=== PATIENT | female | born 1945 | race Caucasian/White ===

== ENCOUNTER 2017-06-03 18:58 | Observation (INO) | payer MEDICARE ==
[~2017-06-03] VITALS: Ht 157.5 cm; Wt 74.8 kg
--- NOTE | ~2017-06-03 | MR122 ---
[facility] A Service of [facility] RADIOLOGY TEXT RESULTS PATIENT: RAVINDER LLOYD LOCATION: [facility] 308- : 44 UNIT #: [id number] AGE: [address]: Rc Sands MD SEX: F ORDER DR: [id number] [facility] [address] [place], [place] [address] [id number] I MR#: [id number] Acc #: [id number] NAME: RAVINDER LLOYD : 1945 SEX: F STUDY DATE/TIME: 06/04/2017 14:38 UNIT: A U ROOM: [facility] STUDY DESCRIPTION: MR MRA Head Wo Contrast Attending Physician: Rc Sands M.D. Ordering Physician: Rc Sands M.D. Primary Care Physician: Eric Post Jr., M.D. MRI CENTER REPORT This report is preliminary unless electronic signature is present. EXAM MR angiogram of the head without contrast dated 06/04/2017. COMPARISON MRI brain and MRA neck dated 06/04/2017. HISTORY Nausea, vomiting, weakness and dizziness since 06/03/2017 a.m. Constant vertigo since 06/03/1970 from 03:00 a.m. FINDINGS Source and 3-D reconstruction MIP images of the [place] was obtained without contrast. Visualized bilateral intracranial internal carotid arteries, anterior cerebral arteries and middle cerebral arteries are within normal limits. Basilar artery and bilateral posterior cerebral arteries do not demonstrate any significant abnormality. There is decrease in caliber of the left vertebral artery slightly, as it extends towards the vertebrobasilar junction. The left PICA probably takes off from it as it extends intradurally itself. No obvious aneurysm or AVM. IMPRESSION 1. There is mild decrease in caliber of the V4 segment of the left vertebral artery as it extends intradurally towards the vertebrobasilar junction. It could be due to mild decrease in caliber after the takeoff of the left PICA. It has a smooth caliber. Atherosclerotic mild narrowing is next in the differential consideration. 2. No aneurysm or AVM. Dictated by... Swetha Snow M.D. THIS IS AN ELECTRONICALLY VERIFIED REPORT [facility] A Service of [facility] RADIOLOGY TEXT RESULTS PATIENT: RAVINDER LLOYD LOCATION: [facility] 308-01 : 44 UNIT #: [id number] AGE: [address]: Rc Sands MD SEX: F ORDER DR: Swetha Snow M.D. at 06/07/2017 1:14 PM CPR/gz TD: 06/05/2017 08:29 JOB #: [id number] MRI CENTER REPORT Page 1 of 1 COPY
--- NOTE | ~2017-06-03 | EKG ---
PATIENT: RAVINDER LLOYD UNIT #: [id number] Ventricular Rate: 51 BPM Atrial Rate: 51 BPM P-R Interval: 146 ms QRS Duration: 74 ms Q-T Interval: 464 ms QTC Calculation(Bezet): 427 ms P [place]: 88 degrees Calculated R [place]: 30 degrees Calculated T [place]: 75 degrees Diagnosis Line: Sinus bradycardia Diagnosis Line: Otherwise normal ECG Diagnosis Line: When compared with ECG of 03-JAN-2016 06:13, Diagnosis Line: No significant change was found Diagnosis Line: Confirmed by YENNY SANDERS MD ([id number]) on Diagnosis Line: 06/03/2017 11:18:25 PM INTERPRETING MD: TOMMY COHEN
--- NOTE | ~2017-06-03 | CR72 ---
[facility] A Service of [facility] RADIOLOGY TEXT RESULTS PATIENT: RAVINDER LLOYD LOCATION: [facility] 308 : 44 UNIT #: [id number] AGE: [address]: Rc Sands MD SEX: F ORDER DR: [id number] [facility] [address] [place], [place] [address] [id number] I MR#: [id number] Acc #: [id number] NAME: RAVINDER LLOYD : 1945 SEX: F STUDY DATE/TIME: 06/03/2017 20:45 UNIT: [address] ROOM: [facility] STUDY DESCRIPTION: CR Chest Single View Portable Attending Physician: Rc Sands M.D. Ordering Physician: Eric Diamond M.D. Primary Care Physician: Eric Post Jr., M.D. MEDICAL IMAGING REPORT This report is preliminary unless electronic signature is present EXAM Portable chest. HISTORY Dizziness, nausea, vomiting since early this morning, prior smoker. FINDINGS Portable view of the chest demonstrates left hilar and left lower lobe parenchymal calcifications and hilar calcifications compatible with granulomas disease. Mild diffuse interstitial prominence may represent background fibrosis. No acute airspace disease or consolidation. No effusions. Heart size within normal limits. Minimal aortic atherosclerotic changes. No pneumothorax. Dictated by... Kimberlee Gordon M.D. THIS IS AN ELECTRONICALLY VERIFIED REPORT Kimberlee Gordon M.D. at 06/04/2017 5:38 PM CAMI/lavinia TD: 06/04/2017 09:03 JOB #: [id number] MEDICAL IMAGING REPORT Page 1 of 1 COPY
--- NOTE | ~2017-06-03 | CT71 ---
[facility] A Service of [facility] RADIOLOGY TEXT RESULTS PATIENT: RAVINDER LLOYD LOCATION: [facility] : 44 UNIT #: [id number] AGE: [address]: Rc Sands MD SEX: F ORDER DR: [id number] [place] [id number] [facility] [place], [place] [address] [id number] I MR#: [id number] Acc #: [id number] NAME: RAVINDER LLOYD : 1945 SEX: F STUDY DATE/TIME: 06/03/2017 20:54 UNIT: [address] ROOM: [facility] STUDY DESCRIPTION: CT Head Wo Contrast Attending Physician: Rc Sands M.D. Ordering Physician: Eric Diamond M.D. Primary Care Physician: Eric Post Jr., M.D. MEDICAL IMAGING REPORT This report is preliminary unless electronic signature is present EXAM Noncontrast head CT. HISTORY Nausea, vomiting, weakness, dizziness since 03:30 this morning. TECHNIQUE This CT exam was performed with one or more of the following radiation dose reduction techniques: Automatic exposure control, adjustment of mA and/or kV according to patient size, and iterative reconstruction. FINDINGS Axial noncontrast imaging of the brain demonstrates brain parenchyma to be normal for age. No mass or mass effect or midline shift. No hemorrhage. No abnormal extraaxial fluid collections. Intracranial vascular calcifications noted. Bony calvarium, skull base, mastoids unremarkable. IMPRESSION No acute intracranial abnormality. Dictated by... Kimberlee Gordon M.D. THIS IS AN ELECTRONICALLY VERIFIED REPORT Kimberlee Gordon M.D. at 06/04/2017 5:38 PM CAMI/lavinia TD: 06/04/2017 10:06 JOB #: [id number] MEDICAL IMAGING REPORT [facility] A Service of [facility] RADIOLOGY TEXT RESULTS PATIENT: RAVINDER LLOYD LOCATION: [facility] : 44 UNIT #: [id number] AGE: [address]: Rc Sands MD SEX: F ORDER DR: Page 1 of 1 COPY
--- NOTE | ~2017-06-03 | EKG ---
PATIENT: RAVINDER LLOYD UNIT #: [id number] Ventricular Rate: 52 BPM Atrial Rate: 52 BPM P-R Interval: 166 ms QRS Duration: 90 ms Q-T Interval: 458 ms QTC Calculation(Bezet): 425 ms P [place]: 37 degrees Calculated R [place]: 41 degrees Calculated T [place]: 77 degrees Diagnosis Line: Sinus bradycardia Diagnosis Line: Otherwise normal ECG Diagnosis Line: When compared with ECG of 03-JUN-2017 20:01, Diagnosis Line: No significant change was found Diagnosis Line: Confirmed by ELLEN PAULINO MD ([id number]) on Diagnosis Line: 06/04/2017 8:29:05 PM INTERPRETING : SOHAN
--- NOTE | ~2017-06-03 | MR134 ---
[facility] A Service of [facility] RADIOLOGY TEXT RESULTS PATIENT: RAVINDER LLOYD LOCATION: [facility] 308- : 44 UNIT #: [id number] AGE: [address]: cR Sands MD SEX: F ORDER DR: [id number] [facility] [address] [place], [place] [address] [id number] I MR#: [id number] Acc #: [id number] NAME: RAVINDER LLOYD : 1945 SEX: F STUDY DATE/TIME: 06/04/2017 14:38 UNIT: [address] ROOM: [facility] STUDY DESCRIPTION: MR MRA Neck Wo Contrast Attending Physician: Rc Sands M.D. Ordering Physician: Rc Sands M.D. Primary Care Physician: Eric Post Jr., M.D. MRI CENTER REPORT This report is preliminary unless electronic signature is present. EXAM MR angiogram of the neck without contrast dated 06/04/2017 COMPARISON MRI brain and MRA head dated 06/04/2017 HISTORY Nausea, vomiting, weakness and dizziness since 06/03/2017 morning. FINDINGS Source and 3-D reconstruction MIP images of the neck arteries were obtained without contrast. There appears to be a four-vessel aortic arch with left vertebral artery directly arising from the arch. Bilateral common and external carotid arteries are within normal limits. There is focal short segment of narrowing of the proximal left internal carotid artery bulb with 60% to 70% focal short segment of stenosis. No significant distal flow limitation is seen. There is some heterogeneity of signal noted in the right internal carotid artery bulb with some narrowing. It measures about 20% to 30% per NASCET criteria. There is symmetrical uncompromised distal bilateral cervical ICA flow. Right vertebral artery is dominant. Bilateral vertebral arteries demonstrate expected course, caliber and flow. IMPRESSION 1. There is 60% to 70% focal short segment of narrowing involving the left internal carotid artery bulb immediately after the origin without distal flow compromise. 2. There is narrowing noted at the proximal right internal carotid artery involving portions of the bulb. It is about 20% to 30% stenosis per NASCET criteria. 3. CT angiogram of the neck would help in further characterizing this stenosis, particularly in the left ICA bulb. If an outside comparison is available, compare with it to confirm the findings. [facility] A Service of [facility] RADIOLOGY TEXT RESULTS PATIENT: RAVINDER LLOYD LOCATION: [facility] 308-01 : 44 UNIT #: [id number] AGE: [address]: Rc Sands MD SEX: F ORDER DR: None are available in the current facility. Dictated by... Swetha Snow M.D. THIS IS AN ELECTRONICALLY VERIFIED REPORT Swetha Snow M.D. at 06/07/2017 1:14 PM ELDA/maynor TD: 06/05/2017 08:21 JOB #: [id number] MRI CENTER REPORT Page 1 of 1 COPY
--- NOTE | ~2017-06-03 | HP ---
Unit #: [id number] #: [id number] Patient: RAVINDER LLOYD [id number] [address] [place], [place] [address] [id number] I MR#: [id number] NAME: RAVINDER LLOYD ROOM: 70439 Age: 71 Sex: F Admission Date: 06/04/2017 : 1945 Attending Physician: Armida Patel M.D. Primary Care Physician: Eric Post Jr., M.D. HISTORY AND PHYSICAL CHIEF COMPLAINT Vertigo. HISTORY This pleasant 71-year-old female with AODM, hypertension, paroxysmal atrial fibrillation, is admitted for vertigo. The patient was well until 3:00 this morning. While ambulating to the bathroom, she developed vertigo. Has experienced vertigo throughout the day, worse with movement of her head or when attempting to stand up, associated with nausea and vomiting. Denies headache or other neurologic symptoms. States that she experienced four to five episodes of vertigo over the past month, no previous history of vertigo. Denies recent respiratory infection, tinnitus, decreased hearing. She presented to this emergency department late last evening, was given 25 mg of meclizine without improvement, given Zofran, IV fluids, and 5 mg of IV valium. Is currently feeling mildly improved although is still unable to ambulate due to vertigo and has a staggered gait when attempting to ambulate. Her neurologic examination at this time is normal except for slightly unequal pupils. CT of the head is negative. PAST MEDICAL HISTORY 1. Paroxysmal atrial fibrillation with echo last year showing moderate aortic stenosis, mild to moderate aortic insufficiency, normal ejection fraction of greater than 55%, mild TR. Right ventricular pressures of 30 to 40 mmHg. 2. AODM. 3. Essential hypertension. 4. Hyperlipidemia. 5. GERD, erosive esophagitis. 6. Cardiolite stress test last year, intermediate likelihood of medium size inferior ischemia but cardiac catheterization showed angiographically normal coronary arteries. 7. BTL. 8. Hemorrhoidectomy. 9. Cervical fusion. 10. Left ankle fusion. ALLERGIES Penicillin and codeine. HOME MEDICATIONS 1. Lopressor 25 mg b.i.d. 2. Fish oil. Unit #: [id number] #: [id number] Patient: RAVINDER LLOYD 3. Vitamin D6. 4. Aspirin. 5. Losartan/hydrochlorothiazide 50/12.5 mg daily. 6. Protonix 40 mg daily. 7. Lipitor 20 mg daily. 8. Glipizide XL 10 mg in the morning, 7.5 mg in the evening. FAMILY HISTORY CAD, CVA. SOCIAL HISTORY The patient lives with her spouse. Stopped smoking in 2010, does not drink alcohol. REVIEW OF SYSTEMS Notable for vertigo with nausea, vomiting and staggered gait, diabetes, hypertension, hyperlipidemia, GERD, paroxysmal atrial fibrillation, above mentioned surgeries. All other systems were reviewed and are otherwise negative. PHYSICAL EXAMINATION GENERAL APPEARANCE: Very pleasant 71-year-old female, currently in no acute distress. VITAL SIGNS: Temperature 97.6, pulse 58, respirations 18, blood pressure initially 180/55 which was treated with a small dose of hydralazine. Current blood pressure is 142/51. O2 saturation 99% on room air. HEENT: Slightly unequal pupils. Extraocular muscles are intact. Pharynx is benign. Neck is supple without adenopathy, thyromegaly or carotid bruits. TMs partially occluded by cerumen but the TM itself looks to be normal. CHEST: Clear. CARDIAC: Normal S1 and S2 with a soft systolic murmur best heard at the upper sternal borders. ABDOMEN: Bowel sounds are present. No hepatosplenomegaly, tenderness or masses. EXTREMITIES: Without C, C or E. Pedal pulses are present but diminished. NEUROLOGIC EXAM: The patient is awake, alert, oriented. Her cranial nerves are intact except for slightly unequal pupils. She has +5 out of 5 strength throughout. Normal rapid alternating movements, normal vojpje-bc-mmir, negative pronator drift. She does feel dizzy when sitting up. DIAGNOSTIC STUDIES LABORATORY: Hematocrit 41.9, white blood count is 13.6, normal platelet count. SMA-12 - glucose is 156. IMAGING: Head CT - no acute disease. Chest x-ray - old granulomatous disease. Mild interstitial prominence. CARDIOVASCULAR: EKG - sinus bradycardia, rate 51. ASSESSMENT 1. Vertigo which likely is peripheral, but given multiple episodes over this past month, will rule out a central etiology. 2. AODM. Unit #: [id number] #: [id number] Patient: RAVINDER LLOYD 3. Paroxysmal atrial fibrillation, currently in a sinus bradycardic rhythm. 4. Hyperlipidemia. 5. Hypertension. PLANS 1. Antivert was unhelpful. Therefore, I will write for pdexter Cueto and some Zofran. 2. Check MRI and MRA of the head. 3. SCDs for DVT prophylaxis. 4. IV fluids and supportive treatment. 5. Sliding scale insulin and hold glipizide until diet is tolerated. Dictated by Armida Patel M.D. JEANNE/emily TD: 06/04/2017 05:35 JOB #: [id number] HISTORY AND PHYSICAL Page 1 of 1 X Armida Patel MD X HISTORY AND PHYSICAL
--- NOTE | ~2017-06-03 | MR17 ---
[facility] A Service of [facility] RADIOLOGY TEXT RESULTS PATIENT: RAVINDER LLOYD LOCATION: [facility] 308- : 44 UNIT #: [id number] AGE: [address]: Rc Sands MD SEX: F ORDER DR: [id number] [facility] [address] [place], [place] [address] [id number] I MR#: [id number] Acc #: [id number] NAME: RAVINDER LLOYD : 1945 SEX: F STUDY DATE/TIME: 06/04/2017 14:38 UNIT: [address] ROOM: [facility] STUDY DESCRIPTION: MR Brain WWo Contrast Attending Physician: Rc Sands M.D. Ordering Physician: Rc Sands M.D. Primary Care Physician: Eric Post Jr., M.D. MRI CENTER REPORT This report is preliminary unless electronic signature is present. EXAM MRI of the brain with and without contrast dated 06/04/2017 COMPARISON MRA head and neck dated 06/04/2017. HISTORY Nausea, vomiting, weakness and dizziness since 06/03/2017. FINDINGS Multisequence multiplanar imaging of the brain was obtained with and without contrast. GFR measured greater than 60. 15 mL of MultiHance was administered intravenously. Scattered multiple hyperintense T2-signal lesions are noted in the white matter particularly in the subcortical and periventricular region. The relatively larger one is in the right periatrial white matter measuring about 1.0 x 1.0 cm. Vascular flow voids of the major cerebral arteries and dural venous sinuses are not occluded in these thicker slices. Thick slices through the sella with the pituitary gland demonstrates a partially empty sella. Pineal region and upper cervical spine do not demonstrate any significant abnormality. Mild degenerative changes are in the cervical spine. Small nodular mucosal thickening are noted in the left maxillary and antrum with right-sided nasal septal deviation in the posterior aspect. Postcontrast sequences do not demonstrate enhancing intracranial lesions. IMPRESSION 1. Scattered hyperintense T2-signal lesions are noted in the white matter predominantly in the periventricular and to a lesser degree in the subcortical regions, likely related to mild chronic microvascular ischemic change or migraine based on age and statistics. 2. No acute stroke, enhancing intracranial mass, hydrocephalus, midline shift or hemorrhage. 3. Partially empty sella. [facility] A Service of [facility] RADIOLOGY TEXT RESULTS PATIENT: RAVINDER LLOYD LOCATION: [facility] 308-01 : 44 UNIT #: [id number] AGE: [address]: Rc Sands MD SEX: F ORDER DR: 4. Degenerative change of the cervical spine at C4-5 level. Dictated by... Swetha Snow M.D. THIS IS AN ELECTRONICALLY VERIFIED REPORT Swetha Snow M.D. at 06/07/2017 1:14 PM CPR/maynor TD: 06/05/2017 08:12 JOB #: [id number] MRI CENTER REPORT Page 1 of 1 COPY
[~2017-06-03 18:58] MED LIST: ASPIRIN81 M2 PO; B VITAMIN; B6100 MG PO; DIOVAN80 M1 PO; FISH OIL 1,0001 CAP PO; FISH OIL300 MG PO; FLEXERIL10 MG PO; GLUCOTROL XL; GREEN COFFEE BEAN; HYZAAR 50-12.51 TA1 PO; HYZAAR PO; IBUPROFEN800 MG PO; LIPITOR20 MG PO; LORTAB 5/500 TA1 TA1 PO; LOSARTAN POTASS50 MG PO; MEDROL DOSEPAK4 MG PO; METOPROLOL TAR25 MG PO; NITROGLYCERIN0.4 MG SL; PANTOPRAZOLE SO40 MG PO; PROTONIX PO; ZITHROMAX1 G/PKT PO
[2017-06-03 20:48] LABS: BASOPHIL# 0.1 X10e3 (0-0.3); BASOPHIL% 0.8 % (0-2.5); EOSINOPHIL# 0.1 X10e3 (0-0.7); EOSINOPHIL% 0.5 % (0.0-7.0); HEMATOCRIT 41.9 % (35.0-45.0); HEMOGLOBIN 13.6 gm/dL (12.0-16.0); LYMPHOCYTE# 2.3 X10e3 (1.0-3.5); LYMPHOCYTE% 16.9 % (17.0-45.0); MEAN CELL VOLUME 85.4 FL (83-96); MEAN CORPUSCULAR HEMOGLOBIN 27.8 PG (28-34); MEAN CORPUSCULAR HGB CONC 32.5 g/dL (30-36); MEAN PLATELET VOLUME 8.6 FL (6.5-11.5); MONOCYTE# 0.9 X10e3 (0-1.0); MONOCYTE% 6.6 % (3.0-12.0); NEUTROPHIL# 10.2 X10e3 (1.5-7.1); NEUTROPHIL% 75.2 % (40-75); PLATELET COUNT 323 X10e3 (140-420); RED BLOOD COUNT 4.91 X10e (3.90-5.30); RED CELL DISTRIBUTION WIDTH 13.6 % (11.0-15.5); WHITE BLOOD COUNT 13.6 X10e3 (4.0-10.5)
[2017-06-03 20:49] LABS: DIFF IND NO
[2017-06-03 21:15] LABS: ALBUMIN SERUM 4.2 g/dL (3.5-5.0); BILIRUBIN, DIRECT 0.1 mg/dL (0.0-0.2); BILIRUBIN,INDIRECT 0.5 mg/dL (0.0-0.9); BILIRUBIN,TOTAL 0.6 mg/dL (0.2-2.0); BUN/CREATININE RATIO 17.14; CALCIUM SERUM 9.3 mg/dL (8.4-10.2); CREATININE SERUM 0.7 mg/dL (0.6-1.4); GLOM FILT RATE Estimated 86.6 mL/min (>60); POTASSIUM 4.4 mmol/L (3.5-5.1); PROTEIN TOTAL SERUM 7.9 g/dL (6.0-8.3)
[2017-06-03 22:22] LABS: POC - CKMB <1.0 ng/mL (0.0-7.9); POC - TROPONIN <0.05 ng/mL (<=0.05)
[2017-06-04 06:54] LABS: BASOPHIL# 0.1 X10e3 (0-0.3); BASOPHIL% 0.9 % (0-2.5); EOSINOPHIL# 0.1 X10e3 (0-0.7); HEMATOCRIT 38.5 % (35.0-45.0); HEMOGLOBIN 12.5 gm/dL (12.0-16.0); LYMPHOCYTE# 3.3 X10e3 (1.0-3.5); LYMPHOCYTE% 25.2 % (17.0-45.0); MEAN CELL VOLUME 85.5 FL (83-96); MEAN CORPUSCULAR HEMOGLOBIN 27.8 PG (28-34); MEAN CORPUSCULAR HGB CONC 32.5 g/dL (30-36); MEAN PLATELET VOLUME 8.6 FL (6.5-11.5); MONOCYTE% 7.2 % (3.0-12.0); NEUTROPHIL# 8.7 X10e3 (1.5-7.1); NEUTROPHIL% 65.7 % (40-75); PLATELET COUNT 278 X10e3 (140-420); RED CELL DISTRIBUTION WIDTH 13.7 % (11.0-15.5); WHITE BLOOD COUNT 13.3 X10e3 (4.0-10.5)
[2017-06-04 07:04] LABS: DIFF IND NO
[2017-06-04 07:17] LABS: BUN/CREATININE RATIO 14.28; CALCIUM SERUM 8.9 mg/dL (8.4-10.2); CREATININE SERUM 0.7 mg/dL (0.6-1.4); GLOM FILT RATE Estimated 86.6 mL/min (>60); POTASSIUM 3.7 mmol/L (3.5-5.1)
[2017-06-04] MEDS ORDERED: PREDNISONE (17:50)
[2017-06-04] MEDS ORDERED: MOTION SICKNESS PO (17:52)
== END 2017-06-04 18:34 | disposition home or self-care (01) ==
LOC: CED 18:58 → CEDOF 06-04 00:10 → CED 06-04 04:12 → CEDOF 06-04 04:12 → C3A PCU 06-04 07:43 → CEDOF 06-04 07:43 → C3A PCU 06-04 07:45
PROVIDERS: Emergency Medicine
DX: R42 Dizziness and giddiness (principal); I48.0 Paroxysmal atrial fibrillation; E78.5 Hyperlipidemia, unspecified; I10 Essential (primary) hypertension; E11.9 Type 2 diabetes mellitus without complications; Z87.891 Personal history of nicotine dependence; K21.9 Gastro-esophageal reflux disease without esophagitis; Z79.899 Other long term (current) drug therapy
CPT/HCPCS: 36415; 70450; 70544; 70547; 70553; 71010; 80048; 80076; 82553; 82947; 84484; 85025; 93005; 96361; 96374; 96375; 99285; A9577; G0378; J0360; J1815; J2405; J3360

== ENCOUNTER → 2017-06-26 | Outpatient (CLI) | payer MEDICARE ==
[~2017-06-26] MED LIST changes: +MOTION SICKNESS PO; +PREDNISONE
--- NOTE | ~2017-06-26 | MY29 ---
[facility] A Service of [facility] RADIOLOGY TEXT RESULTS PATIENT: RAVINDER LLOYD LOCATION: [facility] : 44 UNIT #: [id number] AGE: [address]: Eric Post MD SEX: F ORDER DR: [id number] [facility] [address] [place], [place] [address] [id number] O MR#: [id number] Acc #: [id number] NAME: RAVINDER LLOYD : 1945 SEX: F STUDY DATE/TIME: 06/26/2017 11:29 UNIT: [facility] ROOM: STUDY DESCRIPTION: MY MEKHI SCREENING W/ CAD BILAT Attending Physician: Eric Post Jr., M.D. Ordering Physician: Eric Post Jr., M.D. Primary Care Physician: Eric Post Jr., M.D. MEDICAL IMAGING REPORT This report is preliminary unless electronic signature is present EXAM Digital screening mammogram 06/26/2017. [facility] HISTORY 71-year-old woman no risk elevation. Annual screening COMPARISON: 01/14/2013 FINDINGS Digital imaging of each breast was completed utilizing a two-view examination of each breast in craniocaudal and mediolateral-oblique projections. Review and interpretation of digital mammograms include a second review in conjunction with FDA-approved CAD device. There is a normal parenchymal presentation bilaterally consistent with the patient's age. There are no breast masses imaged and no parenchymal asymmetry is visualized. There are no suspicious microcalcifications and I see no focal architectural disturbance. IMPRESSION Negative screening digital mammogram. One-year followup recommended. Patients over the age of 40 are entered into a reminder system with target due date for the next mammogram. A result letter will also be sent to the patient. BIRADS: 1 Negative Dictated by... Hubert Mariscal M.D. [facility] A Service of [facility] RADIOLOGY TEXT RESULTS PATIENT: RAVINDER LLOYD LOCATION: [facility] : 44 UNIT #: [id number] AGE: [address]: Eric Post MD SEX: F ORDER DR: THIS IS AN ELECTRONICALLY VERIFIED REPORT Hubert Mariscal M.D. at 06/26/2017 2:44 PM Loretta TD: 06/26/2017 14:27 JOB #: [id number] MEDICAL IMAGING REPORT Page 1 of 1 COPY
--- NOTE | ~2017-06-26 | BD1 ---
[facility] A Service of [facility] RADIOLOGY TEXT RESULTS PATIENT: RAVINDER LLOYD LOCATION: [facility] : 44 UNIT #: [id number] AGE: [address]: Eric Post MD SEX: F ORDER DR: [id number] [facility] [address] [place], [place] [address] [id number] O MR#: [id number] Acc #: [id number] NAME: RAVINDER LLOYD : 1945 SEX: F STUDY DATE/TIME: 06/26/2017 11:09 UNIT: [facility] ROOM: STUDY DESCRIPTION: BD Dexa Bone Dens 1+ Site Attending Physician: Eric Post Jr., M.D. Ordering Physician: Eric Post Jr., M.D. Primary Care Physician: Eric Post Jr., M.D. MEDICAL IMAGING REPORT This report is preliminary unless electronic signature is present EXAM DXA scan, 06/26/2017 HISTORY Status post menopause with no hormone replacement therapy. Osteopenia. Diabetes. Hypertension with blood pressure medication for 15 years. Steroid use. Smoking history for 50 years. FINDINGS Bone mineral density in the lumbar spine from L1-L4 is 0.891 g/cm2 which is 1.4 standard deviations below the mean when compared to the young adult reference population which is characteristic of osteopenia. This is 0.9 standard deviations above the mean when compared to the age-matched population. Bone mineral density in the left femoral neck was 0.583 g/cm2 which is 2.4 standard deviations below the mean when compared to the young adult reference population which is characteristic of osteopenia. This is 0.4 standard deviations below the mean when compared to the age-matched population. IMPRESSION Bone mineral density in the lumbar spine and left hip characteristic of osteopenia. Dictated by... Tan Ryan M.D. THIS IS AN ELECTRONICALLY VERIFIED REPORT Tan Ryan M.D. at 06/27/2017 7:28 AM DORON/maynor TD: 06/26/2017 14:16 [facility] A Service of [facility] & [facility] RADIOLOGY TEXT RESULTS PATIENT: RAVINDER LLOYD LOCATION: [facility] #: [id number] : 43 UNIT #: [id number] AGE: [address]: Eric Post MD SEX: F ORDER DR: JOB #: [id number] MEDICAL IMAGING REPORT Page 1 of 1 COPY
== END | disposition home or self-care (01) ==
LOC: CWCC 10:47
DX: Z13.820 Encounter for screening for osteoporosis (principal); Z12.31 Encounter for screening mammogram for malignant neoplasm of breast; Z78.0 Asymptomatic menopausal state; M85.88 Other specified disorders of bone density and structure, other site
CPT/HCPCS: 77080; G0202

== ENCOUNTER → 2017-07-03 | Outpatient (CLI) | payer MEDICARE ==
--- NOTE | ~2017-07-03 | CT138 ---
[facility] A Service of [facility] & [facility] RADIOLOGY TEXT RESULTS PATIENT: RAVINDER LLOYD LOCATION: [facility] : 43 UNIT #: [id number] AGE: [address]: Eric Post MD SEX: F ORDER DR: [id number] [facility] [address] [place], [place] [address] [id number] O MR#: [id number] Acc #: [id number] NAME: RAVINDER LLOYD : 1945 SEX: F STUDY DATE/TIME: 07/03/2017 9:40 UNIT: [facility] ROOM: STUDY DESCRIPTION: CT Lung screening initial Attending Physician: Eric Post Jr., M.D. Referring Physician: Eric Post Jr., M.D. Ordering Physician: Eric Post Jr., M.D. Primary Care Physician: Eric Post Jr., M.D. MEDICAL IMAGING REPORT This report is preliminary unless electronic signature is present EXAM CT chest without contrast lung cancer screening. INDICATION 50 pack-year total smoking history. Former smoker quit [address] scan of the chest was performed without contrast using the low-dose lung cancer screening protocol. Coronal and sagittal reformatted images were obtained. CT dose index 3.[address] exam was performed with one or more of the following radiation dose reduction techniques: automatic exposure control, adjustment of mA and/or kV according to patient size, and iterative reconstruction. COMPARISON Comparison is made with 10/17/2011. FINDINGS Emphysema. There is a pleural-based micronodule in the superior segment of the right lower lobe. This is stable. Large calcified granuloma in the base of the left lower lobe. There is a small area of ground glass opacification of the superior segment the left lower lobe. This may be infectious or inflammatory. No lymphadenopathy or pleural effusion. Coronary artery calcification. Limited imaging in the upper abdomen is unremarkable. The bone windows are unremarkable. IMPRESSION 1. Emphysema. 2. Stable micronodule in the right lung. 3. There is a 2.5 cm area of ground glass opacification in the superior segment of the left lower lobe. This is new compared with 2011, but the exact age is indeterminate. ACR Lung-RADS category 3. Follow up [facility] A Service of [facility] RADIOLOGY TEXT RESULTS PATIENT: RAVINDER LLOYD LOCATION: [facility] : 43 UNIT #: [id number] AGE: [address]: Eric Post MD SEX: F ORDER DR: low-dose lung cancer chest CT in 6 months. Dictated by... Elias Gordon M.D. THIS IS AN ELECTRONICALLY VERIFIED REPORT Elias Gordon M.D. at 07/04/2017 5:28 PM MOHINDER/arjun TD: 07/04/2017 11:25 JOB #: [id number] MEDICAL IMAGING REPORT Page 1 of 1 COPY
== END | disposition home or self-care (01) ==
LOC: CCAT 08:43
DX: Z87.891 Personal history of nicotine dependence (principal)
CPT/HCPCS: G0297